=== PATIENT | female | born 1950 | race Hispanic/Latino ===

== ENCOUNTER → 2024-12-07 | Outpatient (CLI) | payer MEDICARE ==
[~2024-12-07] MED LIST: FAMO-136 PO
--- NOTE | 2024-12-07 17:05 | HMCIMG ---
LUMBAR W FLEXION/EXTENSION REASON: LUMBAR STENOSIS WITH NEUROGENIC CLAUDICATION, SPONDYLOLISTHESIS , L- SPINE. COMPARISON: None TECHNIQUE: 4 images of lumbar spine were obtained including flexion and extension views. FINDINGS: Grade 1 anterolisthesis is seen at the L4-5 level with disc space narrowing unchanged in flexion and extension views. There is straightening of normal lordotic lumbar curvature which may be related to muscle spasm or positioning. There are degenerative changes with lumbar spine spondylosis. IMPRESSION: Findings as described above.
== END | disposition home or self-care (01) ==
LOC: RAH 16:03
PROVIDERS: ATTEND Physical Medicine & Rehabilitation
DX: M47.816 Spondylosis without myelopathy or radiculopathy, lumbar region (principal); M43.16 Spondylolisthesis, lumbar region; M48.062 Spinal stenosis, lumbar region with neurogenic claudication; M53.2X6 Spinal instabilities, lumbar region
CPT/HCPCS: 72114

== ENCOUNTER 2024-12-10 10:08 | Emergency (ER) | payer MEDICARE ==
[~2024-12-10] VITALS: Ht 144.8 cm; Wt 63.0 kg
--- NOTE | 2024-12-10 10:32 | EKG ---
[facility] Test Date: 2024-12-10 Test Time: 10:15:47 Pat Name: SELAM PIERSON Department: ED Room: Gender: Female Iridologist: [id number] : 1950 Requested By: ANGEL BURNHAM Order Number: [id number] Reading MD: Measurements Intervals [place] Rate: 82 P: 59 [place]: 140 QRS: 15 QRSD: 75 T: 26 QT: 360 QTc: 420 Interpretive Statements Sinus rhythm No previous ECG available for comparison Please click the below link to view image of tracing.
[2024-12-10 10:36] LABS: BASOPHILS # (AUTO) 0.06 K/uL (0.00-0.20); BASOPHILS % (AUTO) 0.7 % (0.0-5.0); EOSINOPHILS # (AUTO) 0.06 K/uL (0.00-0.70); EOSINOPHILS % (AUTO) 0.7 % (0.0-8.0); IMMATURE GRANULOCYTE ABSOLUTE 0.06 K/uL (0-1); LYMPHOCYTES # (AUTO) 2.4 K/uL (1.0-4.8); LYMPHOCYTES % (AUTO) 26.3 % (21.0-51.0); MEAN CORPUSCULAR HEMOGLOBIN 31.3 pg (27.0-33.0); MEAN CORPUSCULAR HGB CONC 33.3 g/dL (32.0-36.0); MEAN CORPUSCULAR VOLUME 93.8 fL (79-99); MONOCYTES # (AUTO) 1.3 K/uL (0.1-1.0); MONOCYTES % (AUTO) 14.4 % (3.0-13.0); NEUTROPHILS # (AUTO) 5.3 K/uL (1.8-7.7); NEUTROPHILS % (AUTO) 57.2 % (40.0-77.0); PLATELET COUNT (AUTO) 222 K/uL (130-400); RED BLOOD CELL COUNT(AUTO) 4.16 MIL/uL (4.00-5.50); RED CELL DISTRIBUTION WIDTH 11.9 % (11.0-15.5); WHITE BLOOD COUNT (AUTO) 9.2 K/uL (4.8-10.8)
[2024-12-10 10:45] LABS: CREATININE 0.7 mg/dL (0.5-1.0)
[2024-12-10] MEDS: ondanSETRON 4MG INJ IVP ONE (10:45)
[2024-12-10] MEDS: 0.9%NACL 1000ML 1,000 ML IV ONE (10:45)
[2024-12-10] MEDS: FAMOTIDINE 20MG VIAL IV ONE (10:45)
[2024-12-10 10:49] LABS: APPEARANCE,URINE CLEAR (CLEAR); BILIRUBIN,URINE NEGATIVE (NEGATIVE); COLOR,URINE YELLOW (YELLOW); GLUCOSE, URINE (UA) NEGATIVE (NEGATIVE); KETONES,URINE NEGATIVE (NEGATIVE); LEUKOCYTE ESTERASE ,URINE NEGATIVE Leu/uL (NEGATIVE); NITRATE,URINE NEGATIVE (NEGATIVE); PROTEIN,URINE 30 mg/dL (NEGATIVE); UROBILINOGEN,URINE 0.2 mg/dL (0.2-1.0)
[2024-12-10 10:50] LABS: ADD UA MICROSCOPIC YES
[2024-12-10 10:53] LABS: RBC,URINE 0-1 /HPF (0-1); SQUAMOUS EPITHELIAL CELL,UR RARE /HPF (0-2); WBC,URINE 0-1 /HPF (0-1)
[2024-12-10 10:54] LABS: ALBUMIN 2.9 g/dL (3.5-5.0); BILIRUBIN,DIRECT 0.1 mg/dL (0.0-0.3); BILIRUBIN,TOTAL 0.5 mg/dL (0.2-1.0); TOTAL PROTEIN, SERUM 7.3 g/dL (6.0-8.3)
[2024-12-10 11:02] LABS: INFLUENZA TYPE A Negative For Type A (NEGATIVE); INFLUENZA TYPE B Negative For Type B (NEGATIVE)
[2024-12-10] MEDS ORDERED: IOHEXOL 350 MG/ML 100ML INFUS..BTL IV ONE (11:13)
[2024-12-10 12:08] LABS: RAPID GROUP A STREP positive (NEGATIVE)
--- NOTE | 2024-12-10 12:37 | HMCIMG ---
CT ABDOMEN/PELVIS W/CONTRAST HISTORY: Epigastric pain COMPARISON: None TECHNIQUE: Multiple sequential axial images of the abdomen and pelvis were obtained from the dome of the diaphragm through symphysis pubis. Patient was given 100 cc of Omnipaque through intravenous route. Oral contrast was not given. FINDINGS: No pleural effusion is seen bilaterally. There is no evidence of parenchymal disease or pulmonary nodule of the visualized lower lungs. Degenerative changes of the thoracolumbar spine are present. The heart is not enlarged. Liver measured 12.6 cm. Spleen measures 10 cm. The liver, spleen, adrenal glands and pancreas are unremarkable. There is no evidence of hydronephrosis bilaterally. No evidence of renal stone is seen. Fecal material is seen in the colon. There are normal size retroperitoneal and mesenteric lymph nodes. No ascites is seen. Atherosclerotic changes are present. There is mild diverticulosis.. No CT evidence of acute appendicitis is seen. Pelvic sidewalls are symmetric bilaterally. Bladder is well distended without wall thickening. IMPRESSION: 1. No acute findings. CT was performed with one or more following dose reduction techniques: automated exposure control, adjustment of the mA and kv according to patient's size, or use of a iterative reconstruction technique.
[2024-12-10 12:55] VITALS: BP 103/56; PULSE 71; RESP 16; TEMP 98.1; O2SAT 95
--- NOTE | 2024-12-10 12:59 | HMCIMG ---
CHEST 1VW HISTORY: Shortness of breath COMPARISON: None FINDINGS: A frontal projection of the chest was obtained. No acute pulmonary infiltrates is seen. The heart is borderline enlarged. Degenerative changes are seen. Aortic calcifications are seen. Prominent interstitial markings are seen. IMPRESSION: 1. No acute pulmonary infiltrate is seen.
[2024-12-10] MEDS ORDERED: FAMO-136 PO (13:16)
--- NOTE | 2024-12-10 13:17 | ERN ---
General Chief Complaint: Abdominal Pain Stated Complaint: ABDOMINAL PAIN Time Seen by MD: 10:10 Time Seen by Midlevel: 10:10 Source: patient History of Present Illness Initial Comments Patient is a 74-year-old female with no significant past medical history presenting to the emergency department with midepigastric abdominal pain that has been ongoing for the last two weeks. She was seen her primary care doctor twice for this issue. She reports developing a subjective fever earlier today. The last time she saw her primary care doctor she was diagnosed with strep pharyngitis and placed on amoxicillin for outpatient management. She has been on her antibiotics for four days with little to no relief. Allergies: Coded Allergies: No Known Drug Allergies (Unverified Allergy, Unknown, 12/10/24) Home Meds Active Scripts Famotidine (Pepcid) 20 Mg Tablet, 1 TAB PO BID for 30 Days, #60 TAB 0 Refills Prov:ANGEL BURNHAM 12/10/24 Past Medical History Past Medical History: No Pertinent History Past Surgical History: None ROS Dictation CONSTITUTIONAL: Negative except for HPI HEAD/FACE: Negative except for HPI EENT: Negative except for HPI RESPIRATORY: Negative except for HPI GASTROINTESTINAL/ABDOMINAL: Negative except for HPI GENITOURINARY: Negative except for HPI MUSCULOSKELETAL: Negative except for HPI INTEGUMENTARY: Negative except for HPI NEUROLOGICAL/PSYCH: Negative except for HPI HEMATOLOGIC/LYMPHATIC: Negative except for HPI All Systems Negative, Except as noted above. 13 point review of systems assessed and all negative except for above. Physical Exam Physical Exam Dictation Vital Signs reviewed General Appearance: Alert, oriented x 3, no acute distress, well developed, nourished. Head and Face: non-traumatic. Eyes: PERRL, pink conjunctivas, eyelid no trauma, anterior chamber with arcus senilis. Ears: Pinnas intact and no signs of trauma or erythema ear canals clear and no discharge TM no erythema Nose: No discharge, no bleeding. Oropharynx: Mouth normal, tongue pink, pharynx clear,no erythema, tonsils no exudates, no abscesses noted, mucous membrane moist Neck: Supple, non-tender, no thyromegaly, no masses, no JVD, no bruits Breast:Deferred Chest:No tenderness, no crepitus, no paradoxical movement, no retractions Lungs:Clear, well-ventilated, symmetric, no rales, no wheezing, no rhonchi, no stridor, good breath sounds bilaterally Heart: Regular rate, regular rhythm, no murmur, no gallops Vascular: no peripheral edema, Abdomen: Soft, positive bowel sounds, nondistended, no guarding, Moderate midepigastric abdominal tenderness, no rebound, no masses no hepatomegaly, no splenomegaly, no Mcintosh's sign, no hernias. Rectal: Deferred Genital: Deferred Neurological: Normal speech, motor function intact, sensory function intact Musculoskeletal: Neck nontender, full range of motion, back nontender, full range of motion, Extremities: nontender, full range of motion Skin: Color pink, dry, no turgor, no rash, no lacerations, no abrasions, no contusions. Lymphatic: Deferred Results Laboratory and Microbiology Lab and Micro Result Laboratory Tests Test 12/10/24 10:10 12/10/24 10:30 12/10/24 10:42 Influenza Type A Antigen Negative For Type A Influenza Type B Antigen Negative For Type B Group A Streptococcus Rapid positive (NEGATIVE) *A White Blood Count 9.2 K/uL (4.8-10.8) Red Blood Count 4.16 MIL/uL (4.00-5.50) Hemoglobin 13.0 g/dL (12.0-16.0) Hematocrit 39.0 % (36-48) Mean Corpuscular Volume 93.8 fL (79-99) Mean Corpuscular Hemoglobin 31.3 pg (27.0-33.0) Mean Corpuscular Hemoglobin Concent 33.3 g/dL (32.0-36.0) Red Cell Distribution Width 11.9 % (11.0-15.5) Platelet Count 222 K/uL (130-400) Mean Platelet Volume 10.2 fL (7.5-10.5) Immature Granulocyte % (Auto) 0.7 % (0-1) Neutrophils (%) (Auto) 57.2 % (40.0-77.0) Lymphocytes (%) (Auto) 26.3 % (21.0-51.0) Monocytes (%) (Auto) 14.4 % (3.0-13.0) H Eosinophils (%) (Auto) 0.7 % (0.0-8.0) Basophils (%) (Auto) 0.7 % (0.0-5.0) Neutrophils # (Auto) 5.3 K/uL (1.8-7.7) Lymphocytes # (Auto) 2.4 K/uL (1.0-4.8) Monocytes # (Auto) 1.3 K/uL (0.1-1.0) H Eosinophils # (Auto) 0.06 K/uL (0.00-0.70) Basophils # (Auto) 0.06 K/uL (0.00-0.20) Absolute Immature Granulocyte (auto 0.06 K/uL (0-1) Nucleated Red Blood Cells 0.0 % (0.0-0.19) Sodium Level 138 mmol/L (136-145) Potassium Level 4.0 mmol/L (3.5-5.1) Chloride Level 102 mmol/L (101-111) Carbon Dioxide Level 28 mmol/L (21-32) Blood Urea Nitrogen 9 mg/dL (7-18) Creatinine 0.7 mg/dL (0.5-1.0) Glomerular Filtration Rate Calc 91 mL/min (>90) Random Glucose 112 mg/dL (70-105) H Total Calcium 8.8 mg/dL (8.5-10.1) Total Bilirubin 0.5 mg/dL (0.2-1.0) Direct Bilirubin 0.1 mg/dL (0.0-0.3) Aspartate Amino Transf (AST/SGOT) 72 U/L (10-37) H Alanine Aminotransferase (ALT/SGPT) 62 U/L (12-78) Alkaline Phosphatase 111 U/L (50-136) Troponin I High Sensitivity 7 ng/L (4-50) Total Protein 7.3 g/dL (6.0-8.3) Albumin 2.9 g/dL (3.5-5.0) L Lipase 36 U/L (16-77) Urine Color YELLOW (YELLOW) Urine Appearance CLEAR (CLEAR) Urine pH 6.0 (5.0-8.0) Urine Specific [place] 1.012 (1.001-1.031) Urine Protein 30 mg/dL (NEGATIVE) H Urine Glucose (UA) NEGATIVE mg/dL (NEGATIVE) Urine Ketones NEGATIVE mg/dL (NEGATIVE) Urine Occult Blood +- (TRACE) (NEGATIVE) H Urine Nitrate NEGATIVE (NEGATIVE) Urine Bilirubin NEGATIVE mg/dL (NEGATIVE) Urine Urobilinogen 0.2 mg/dL (0.2-1.0) Urine Leukocyte Esterase NEGATIVE Meghann/uL Urine RBC 0-1 /HPF (0-1) Urine WBC 0-1 /HPF (0-1) Urine Squamous Epithelial Cells RARE /HPF (0-2) Urine Bacteria None /HPF (None Seen) Labs Reviewed?: Yes MDM MDM: Patient is a 74-year-old female with no significant past medical history presenting to the emergency department with midepigastric abdominal pain that has been ongoing for the last two weeks. She was seen her primary care doctor twice for this issue. She reports developing a subjective fever earlier today. The last time she saw her primary care doctor she was diagnosed with strep pharyngitis and placed on amoxicillin for outpatient management. She has been on her antibiotics for four days with little to no relief. On physical examination patient is in no acute distress. There is some moderate midepigastric abdominal tenderness with no rebound or guarding. Her CBC does not show any leukocytosis. Her hemoglobin is stable. Her platelets are normal. Chemistries unremarkable. ALT is slightly elevated in 70s however bilirubin is normal. There was no evidence of acute pancreatitis at this time. CT scan of the abdomen and pelvis does not show any acute finding. Symptoms are most likely related to gastritis. The patient will be discharged home with Pepcid and was advised to follow up with her primary care doctor in 2-3 days for repeat evaluation. She may need an outpatient GI consultation for an endoscopy. She did test positive for strep today again however she was not having any symptoms. I do believe she was a strep carrier however I will go ahead and give 1 g of Rocephin and advised her to continue taking her antibiotics as prescribed. Differential diagnosis: Gastritis, pancreatitis, constipation, obstruction, mesenteric adenitis There are no social concerns with this patient. Prescription drug management Prescriptions will include: Pepcid Medical management and examination interpretation discussions were had by me with other qualified healthcare professionals as indicated for the patient's care. ED Course Orders Procedure Category Date Status Time Urinalysis Profile LAB 12/10/24 Complete 10:17 12 Lead Ekg Tracing- EKG 12/10/24 Complete Technical 10:17 Rapid (Group A Strep) LAB 12/10/24 Complete 10:17 Influenza Type A & B, LAB 12/10/24 Complete Rapid 10:17 Cbc With Differential LAB 12/10/24 Complete 10:17 Hepatic Function Panel LAB 12/10/24 Complete 10:21 Lipase LAB 12/10/24 Complete 10:21 Basic Metabolic Panel LAB 12/10/24 Complete 10:21 Troponin I High LAB 12/10/24 Complete Sensitivity 10:21 Ct Abdomen/Pelvis CT 12/10/24 Resulted W/Contrast 10:21 0.9%Nacl 1000ml (Ns PHA 12/10/24 Complete 1000ml) 10:30 Ondansetron 4mg Inj PHA 12/10/24 Complete (Zofran 4mg Inj) 10:30 Famotidine 20mg Vial PHA 12/10/24 Complete (Pepcid 20mg Vial) 10:30 Covid Rna Naat LAB 12/10/24 Logged 10:49 Chest 1vw RAD 12/10/24 Resulted 10:49 Iohexol (Omnipaque) PHA 12/10/24 Complete 11:13 Ceftriaxone 1g Vial PHA 12/10/24 In Process (Rocephine 1g Inj) 13:30 Current Medications Medications (Trade) Dose Ordered Sig/Raffy Route PRN Reason Start Time Stop Time Status Last Admin Dose Admin Ceftriaxone Sodium (ROCEphine 1G INJ) 1 gm ONCE ONCE IVPB 12/10/24 13:30 12/10/24 13:31 Famotidine (Pepcid 20mg Vial) 20 mg ONCE ONCE IV 12/10/24 10:30 12/10/24 10:31 DC 12/10/24 10:45 Iohexol (Omnipaque) 35,000 mg STK-MED ONCE IV 12/10/24 11:13 12/10/24 11:25 DC Ondansetron HCl (zoFRAN 4MG INJ) 4 mg ONCE ONCE IVP 12/10/24 10:30 12/10/24 10:31 DC 12/10/24 10:45 Sodium Chloride 1,000 ml @ 0 mls/hr ONCE ONCE IV 12/10/24 10:30 12/10/24 10:31 DC 12/10/24 10:45 Vital Signs Date Time Temp Pulse Resp B/P (MAP) Pulse Ox O2 Delivery O2 Flow Rate FiO2 12/10/24 12:55 98.1 71 16 103/56 95 Room Air* 0 12/10/24 10:09 98.1 89 16 124/68 96 Room Air* 0 12/10/24 10:09 98.1 89 16 124/68 Room Air DX & DISP Disposition: Discharge Departure Impression: Primary Impression: Gastritis Condition: Stable Scripts Famotidine (Pepcid) 20 Mg Tablet 1 TAB PO BID for 30 Days, #60 TAB 0 Refills Prov: ANGEL BURNHAM 12/10/24 Additional Instructions: Your blood work today is unremarkable. Your cardiac enzymes are negative. Your EKG does not show any evidence of a heart attack. Your chest x-ray does not show any evidence of pneumonia or collapsed lungs. Your hemoglobin and electrolytes are normal. Your lipase is normal. There was no evidence of acute pancreatitis. Your CT scan of the abdomen/pelvis with contrast does not reveal any acute finding. Your symptoms may be related to gastritis. You will need to follow up with your primary care doctor and obtain a referral to see a GI specialist outpatient. You will need an endoscopy for further evaluation and management. I have given you a prescription for Pepcid which should help with your symptoms. Return to the emergency department if you develop any new or worsening symptoms. Referrals: YAMIL MCCOY PA-C (PCP) CHRIS HURTADO MD Time of Disposition: 13:15 I have reviewed the case, and I agree with, Diagnosis and Plan I performed the substantive portion of the visit. I have reviewed and personally made and approve the management plan that is documented in the note by myself or the CAMACHO. I acknowledge for responsibility for the patient's management plan. ANGEL BURNHAM Dec 10, 2024 13:17
[2024-12-10] MEDS: cefTRIAXone 1G VIAL IVPB ONE (13:24)
== END 2024-12-10 13:38 | disposition home or self-care (01) ==
LOC: EDH 10:08
DX: K29.70 Gastritis, unspecified, without bleeding (principal); Z79.899 Other long term (current) drug therapy
CPT/HCPCS: 99285; 74177; 96374; 96361; 96375; 71045; 80076; 84484; 80048; 83690; 85025; 87880; 87804 ×2; 81001; 36415; 93005; J3490; J7030; J0696; J2405; Q9967

== ENCOUNTER → 2024-12-14 | Outpatient (CLI) | payer MEDICARE ==
--- NOTE | 2024-12-14 12:36 | HMCIMG ---
MR SPINAL CANAL, LUMBAR WO CON HISTORY: Pain COMPARISON: None TECHNIQUE: MRI of the lumbar spine was performed utilizing multiple pulse sequences in axial , coronal and sagittal plane. Patient was not given contrast through intravenous route. FINDINGS: No abnormal signal intensity is seen of the visualized bony structure. No loss of vertebral height is seen. There is straightening of normal lumbar curvature which may be related to muscle spasm or positioning. Degenerative disc signals are present at all lumbar spine levels. Grade 1 anterolisthesis is seen at the L4-5 level. Visualized distal conus is unremarkable. At the L1-2 level, there is spondylotic disc annular disc bulge and bilateral ligamentum flavum hypertrophy causing anterior thecal sac compression with bilateral lateral recess stenosis and bilateral neural foraminal stenosis. The thecal sac measures approximately 8.2 mm in its anterior posterior dimension. At the L2-3 level, there is spondylotic disc with central disc protrusion and bilateral ligamentum flavum hypertrophy causing anterior thecal sac compression with bilateral lateral recess stenosis and bilateral neural foraminal stenosis. The thecal sac measures approximately 6.6 mm in its anterior posterior dimension. At the L3-4 level, there is spondylotic disc with central disc protrusion and bilateral ligamentum flavum hypertrophy causing anterior thecal sac compression with bilateral lateral recess stenosis and bilateral neural foraminal stenosis. The thecal sac measures approximately 8.2 mm in its anterior posterior dimension. At the L4-5 level, there is spondylotic disc with annular disc bulge and bilateral facet hypertrophy and bilateral hypertrophy causing anterior thecal sac compression with bilateral lateral recess stenosis and bilateral neural foraminal stenosis. The thecal sac measures approximately 3.5 mm in its anterior posterior dimension. IMPRESSION: 1. DJD with lumbar spine spondylosis as described above. Grade 1 anterolisthesis L4-5 level.
== END | disposition home or self-care (01) ==
LOC: RAH 10:14
PROVIDERS: ATTEND Physical Medicine & Rehabilitation
DX: M51.369 Other intervertebral disc degeneration, lumbar region without mention of lumbar back pain or lower extremity pain (principal); M48.062 Spinal stenosis, lumbar region with neurogenic claudication; M43.10 Spondylolisthesis, site unspecified; M53.2X6 Spinal instabilities, lumbar region
CPT/HCPCS: 72148